=== PATIENT | female | born 1950 | race Caucasian/White ===

== ENCOUNTER 2018-07-03 06:32 | Day surgery (SDC) | payer MEDICARE, OTHER ==
[~2018-07-03] VITALS: Ht 177.8 cm; Wt 77.1 kg
[~2018-07-03 06:32] MED LIST: ASCO250T6 PO; ASPI-891 PO; BIOT5000 PO; CHOL100040 PO; FISH1CAP49 PO; GLUC100019 PO; LORA1TAB3 PO; LUTE1CAP PO; MULT-1203 PO; SODIUM CHLORIDE 0.9% 1000ML 1,000 ML IV ONE; VALA500T38 PO; VITA-380 PO; VITA1CAP20 PO
[2018-07-03 07:00] VITALS: BP 128/59
[2018-07-03] MEDS ORDERED: PROPOFOL 10 MG/ML 20ML VIAL IV ONE (08:10)
[2018-07-03 08:30] VITALS: BP 101/40
[2018-07-03 08:35] VITALS: BP 96/47
[2018-07-03 08:40] VITALS: BP 97/56
[2018-07-03 08:45] VITALS: BP 105/62
[2018-07-03 09:00] VITALS: BP 118/54
== END 2018-07-03 09:03 | disposition home or self-care (01) ==
LOC: ENDO 06:32 → DAH 06:32 → ENDO 09:03
PROVIDERS: ATTEND Internal Medicine
DX: Z12.11 Encounter for screening for malignant neoplasm of colon (principal); K62.1 Rectal polyp; Z86.010 Personal history of colon polyps; E78.5 Hyperlipidemia, unspecified; F41.9 Anxiety disorder, unspecified; Z79.899 Other long term (current) drug therapy; Z98.890 Other specified postprocedural states; R55 Syncope and collapse; Z88.2 Allergy status to sulfonamides; K57.30 Diverticulosis of large intestine without perforation or abscess without bleeding; K64.0 First degree hemorrhoids
CPT/HCPCS: 45380; 88305; 93005; A4606; J2704; J7030

== ENCOUNTER → 2018-12-20 | Outpatient (CLI) | payer OTHER ==
[~2018-12-20] MED LIST changes: +ASCO250T24 PO; -ASCO250T6 PO; -SODIUM CHLORIDE 0.9% 1000ML 1,000 ML IV ONE
== END | disposition home or self-care (01) ==
LOC: RAH 14:47
PROVIDERS: ATTEND Internal Medicine Cardiovascular Disease
DX: Z13.6 Encounter for screening for cardiovascular disorders (principal)
CPT/HCPCS: 75571